=== PATIENT | male | born 1950 | race Caucasian/White ===

== ENCOUNTER 2018-09-17 01:13 | Emergency (ER) | payer MEDICARE, OTHER ==
[~2018-09-17] VITALS: Ht 175.3 cm; Wt 83.1 kg
[2018-09-17 01:15] VITALS: Ht 175.3 cm; Wt 83.1 kg
--- NOTE | 2018-09-17 03:06 | ERD ---
ER Documentation Chief Complaint Chief Complaint cough x [address] HPI 68-year-old male, presents to the emergency department, complaining of 7 days with worsening of upper respiratory symptoms including fever, sore throat, productive cough of yellowish sputum and general malaise. ROS All systems reviewed and are negative except as per history of present illness. Medications Home Meds Active Scripts Albuterol Sulfate* (Proair HFA*) 8.5 Gm Hfa.aer.ad, 2 PUFF INH Q4 for 7 Days, #1 INHALER Prov:KENNA SAUCEDA MD 09/17/18 Codeine Phosphate/Guaifenesin (Guaifen-Codeine 200-20 mg/10Ml) 10 Ml Liquid, 10 ML PO QHS for 5 Days, #60 ML Prov:KENNA SAUCEDA MD 09/17/18 Amoxicillin* (Amoxicillin*) 500 Mg Cap, 500 MG PO TID for 7 Days, CAP Prov:KENNA SAUCEDA MD 09/17/18 PMhx/Soc History of Surgery: Yes (Varicose veins) Anesthesia Reaction: No Hx Neurological Disorder: No Hx Respiratory Disorders: No Hx Cardiac Disorders: No Hx Psychiatric Problems: No Hx Miscellaneous Medical Probl: No Hx Alcohol Use: No Hx Substance Use: No Hx Tobacco Use: No Smoking Status: Never smoker Physical Exam Vitals Vital Signs Date Temp Pulse Resp B/P (MAP) Pulse Ox O2 O2 Flow FiO2 Time Delivery Rate 09/17/18 98.9 71 18 167/84 97 Room Air 04:15 (111) 09/17/18 98.3 80 16 171/84 97 01:15 (113) Physical Exam Const: No acute distress Head: Atraumatic Eyes: Normal Conjunctiva ENT: Normal External Ears, Nose and Mouth. Neck: Full range of motion. No meningismus. Resp: Rhonchi to auscultation bilaterally Cardio: Regular rate and rhythm, no murmurs Abd: Soft, non tender, non distended. Normal bowel sounds Skin: No petechiae or rashes Back: No midline or flank tenderness Ext: No cyanosis, or edema Neur: Awake and alert Psych: Normal Mood and Affect Procedures/MDM At the time of discharge, patient with nontoxic appearance, vital signs stable, no respiratory distress. Differential diagnosis include but not limited to: upper vs lower respiratory infection bacterial/viral/fungal. Asthma, COPD, pneumonitis, allergies, GERD. Less likely pulmonary embolism, cardiac related or malignancy, but still is a possibility. Physical examination and clinical presentation consistent most likely with viral infection with early superimposed bacterial infection. During the ED course the patient remained stable, no new complaints. Treatment options and clinical impression discussed with the patient who agrees with management. The patient is stable to be treated outpatient and will be discharged home. Some side effects of prescribed medications (headache, rash, nausea, vomiting, diarrhea, interactions with other medications) were reviewed. The patient needs to follow up with the primary care provider in the next 48h. If symptoms persist, worsen or new symptoms develop, then patient should return to the ED immediately. Disclaimer: Inadvertent spelling and grammatical errors are likely due to EHR/dictation software use and do not reflect on the overall quality of patient care. Also, please note that the electronic time recorded on this note does not necessarily reflect the actual time of the patient encounter. Departure Diagnosis: Primary Impression: Cough Additional Impressions: Fever Abnormal respiratory sounds Condition: Stable Additional Instructions: Muchas radha por [facility] para mei servicio. Esperamos que en mei visita a la celeste de emergencia mei problema medico haya sido solucionado y que se sienta mucho mejor. Para estar seguros que mei mejoria sigue en proceso, le pedimos el favor de hacer pablo sunil de seguimiento medico con mei doctor primario en los proximos 2-4 lopez. Lleve con usted estos documentos y las medicinas recetadas. Si yoly sintomas empeoran, NO SE ESPERE, por favor regrese a celeste de emergencia INMEDIATAMENTE. En jose manuel que usted no tenga un mdico de atencin primaria: Llame al mdico o clnica comunitaria de referencia que aparece abajo sudeep las horas de consultorio para hacer pablo sunil para que le vean. CLINICAS: [facility] [phone] [facility] [phone] [facility] [phone] [facility] [phone] [facility] [phone] [facility]. [phone] KENNA HARO MD Sep 17, 2018 03:06
[2018-09-17] MEDS ORDERED: CODE10LI PO (03:38)
[2018-09-17] MEDS ORDERED: ALBU8.5H8 INH (03:38)
[2018-09-17] MEDS ORDERED: AMOX500C2 PO (03:38)
[2018-09-17 04:15] VITALS: BP 167/84; PULSE 71; RESP 18
== END 2018-09-17 04:16 | disposition home or self-care (01) ==
LOC: FTE 01:13
DX: R05 Cough (principal); R50.9 Fever, unspecified; R09.89 Other specified symptoms and signs involving the circulatory and respiratory systems
CPT/HCPCS: 99283

== ENCOUNTER 2018-10-01 09:28 | Emergency (ER) | payer MEDICARE ==
[~2018-10-01] VITALS: Ht 152.4 cm; Wt 91.0 kg
[~2018-10-01 09:28] MED LIST: ALBU8.5H8 INH; AMOX500C2 PO; CODE10LI PO
[2018-10-01 09:31] VITALS: BP 113/71; PULSE 75; RESP 18; Ht 152.4 cm; Wt 91.0 kg
[2018-10-01] MEDS ORDERED: ALBUTEROL 0.083% (NEB) 2.5 MG/3 ML AMP HHN STA ×2 (09:49→11:01)
[2018-10-01] MEDS ORDERED: GUAIFENESIN/CODEINE 5ML CUP PO ONE (10:00)
[2018-10-01] MEDS ORDERED: IPRATROPIUM (NEB) 0.5 MG/2.5 ML AMP HHN ONE (10:00)
--- NOTE | 2018-10-01 11:49 | ERD ---
ER Documentation Chief Complaint Chief Complaint COUGH X 3 WEEKS DENIES FEVER HPI History of Present Illness: 68-year-old male with no past medical history coming in today with complaint of cough that is been present present for 3 weeks. Patient describes cough as dry and is present all day, but more frequent at ni ghttime. Patient denies any chest pain, shortness of breath, breathing, swelling in lower extremities. Patient denies any acid reflux-like symptoms., Denies nausea/vomiting. Patient reports allergy-like symptoms. Patient denies any other associated symptoms. At home pharmacological/nonpharmacological treatment for symptoms: Denies Denies social concerns; Denies recent foreign travel ROS All systems reviewed and are negative except as per history of present illness. Medications Home Meds Active Scripts Benzonatate* (Tessalon Perle*) 100 Mg Capsule, 100 MG PO Q8H PRN for COUGH, #30 CAP Prov:RICARDO WEEMS NP 10/01/18 Albuterol Sulfate* (Ventolin HFA*) 18 Gm Hfa.aer.ad, 2 PUFF INHALATION Q4H, #1 INHALER Prov:RICARDO WEEMS NP 10/01/18 Cetirizine Hcl* (Cetirizine Hcl*) 10 Mg Tablet, 10 MG PO DAILY for COUGH/ALLERGIES, #30 TAB Prov:RICARDO WEEMS NP 10/01/18 Guaifenesin/Codeine Phosphate (CHERATUSSIN AC SYRUP) 118 Ml Liquid, 10 ML PO Q8 PRN for COUGH/CONGESTION, #118 ML Prov:RICARDO WEEMS NP 10/01/18 Albuterol Sulfate* (Proair HFA*) 8.5 Gm Hfa.aer.ad, 2 PUFF INH Q4 for 7 Days, #1 INHALER Prov:KENNA SAUCEDA MD 09/17/18 Codeine Phosphate/Guaifenesin (Guaifen-Codeine 200-20 mg/10Ml) 10 Ml Liquid, 10 ML PO QHS for 5 Days, #60 ML Prov:KENNA SAUCEDA MD 09/17/18 Amoxicillin* (Amoxicillin*) 500 Mg Cap, 500 MG PO TID for 7 Days, CAP Prov:KENNA SAUCEDA MD 09/17/18 Allergies Allergies: Coded Allergies: No Known Allergy (Unverified , 10/01/18) PMhx/Soc History of Surgery: Yes (Varicose veins) Anesthesia Reaction: No Hx Neurological Disorder: No Hx Respiratory Disorders: No Hx Cardiac Disorders: No Hx Psychiatric Problems: No Hx Miscellaneous Medical Probl: No Hx Alcohol Use: No Hx Substance Use: No Hx Tobacco Use: No Smoking Status: Never smoker FmHx Family History: No diabetes, No coronary disease Physical Exam Vitals Vital Signs Date Temp Pulse Resp B/P (MAP) Pulse Ox O2 O2 Flow FiO2 Time Delivery Rate 10/01/18 72 18 98 21 11:57 10/01/18 71 20 98 21 10:03 10/01/18 98.3 75 18 113/71 99 09:31 (85) Physical Exam Const: No acute distress Head: Atraumatic Eyes: Normal Conjunctiva ENT: Normal External Ears, Nose and Mouth. Neck: Full range of motion. No meningismus. Resp: Coarse breath sounds noted to auscultation bilaterally, no wheezing, rales, rhonchi; diminished breath sounds on the left side Cardio: Regular rate and rhythm, no murmurs Abd: Soft, non tender, non distended. Normal bowel sounds Skin: No petechiae or rashes Back: No midline or flank tenderness Ext: No cyanosis, or edema. no pitting edema. Neur: Awake and alert Psych: Normal Mood and Affect Results 24 hrs Current Medications Medications Dose Sig/Kimberlyn Start Time Status Last (Trade) Ordered Route PRN Stop Time Admin Dose Reason Admin Albuterol 5 mg ONCE STAT 10/01/18 DC 10/01/18 (Proventil HHN 09:49 10:01 0.083% (Neb)) 10/01/18 09:52 Ipratropium 0.5 mg ONCE ONCE 10/01/18 DC 10/01/18 [place] HHN 10:00 10:01 (Atrovent 10/01/18 10:01 0.02% (Neb)) 10 ml ONCE ONCE 10/01/18 DC 10/01/18 Guaifenesin/ PO 10:00 09:54 Codeine 10/01/18 10:01 Phosphate (Robitussin Ac Liquid Cup) Albuterol 5 mg ONCE STAT 10/01/18 DC 10/01/18 (Proventil HHN 11:01 11:55 0.083% (Neb)) 10/01/18 11:05 Procedures/MDM ED course includes a thorough examination and history. Medications: Nebulizer treatments, codeine/guaifenesin Imaging: Chest x-ray Labs: -- Low suspicion for life-threatening medical emergency. Low suspicion for coronary pulmonary emergency that requires hospitalization or immediate surgical intervention. Otherwise healthy patient presenting with constellation of symptoms likely representing uncomplicated bronchitis as characterized by history, physical exam findings. Patient hemodynamically stable. Patient afebrile. No signs of infectious process. IMPRESSION: Mild partial atelectasis in the left lung base. No focal appearing consolidation. RPTAT:AAJJ Physician Jes Date Time Electronically viewed and signed by Lizbet Finn Physician on 10/01/2018 11:06 No respiratory distress, otherwise relatively well appearing and nontoxic. Patient reassessment revealed decrease in coarse breath sounds. Patient not completely clear to auscultation bilaterally. Patient with decreased cough of her medications and nebulizer treatments. Disposition given. Education given. Verbalized understanding of instructions. Patient educated on diagnoses, prescriptions, follow-up care, return precautions. Strict return precautions given for worsening condition; questions answered discharge. Disposition for discharge with followup in 2 days with PCP/clinic. Departure Diagnosis: Primary Impression: Bronchitis Additional Impressions: Cough Allergic rhinitis Allergic rhinitis trigger: unspecified Allergic rhinitis seasonality: unspecified Qualified Codes: J30.9 - Allergic rhinitis, unspecified Condition: Stable RICARDO WEEMS NP Oct 01, 2018 11:49
[2018-10-01] MEDS ORDERED: GUAI118L22 PO (11:52)
[2018-10-01] MEDS ORDERED: CETI10TA19 PO (11:53)
[2018-10-01] MEDS ORDERED: BENZ-6 PO (11:55)
[2018-10-01] MEDS ORDERED: ALBU18HF INHALATION (11:55)
== END 2018-10-01 12:27 | disposition home or self-care (01) ==
LOC: FTE 09:28
DX: J40 Bronchitis, not specified as acute or chronic (principal); J30.9 Allergic rhinitis, unspecified
CPT/HCPCS: 71046; 94640; 94664